=== PATIENT | female | born 1960 | race Asian ===

== ENCOUNTER 2021-06-10 21:30 | Emergency (ER) | payer OTHER ==
[~2021-06-10] VITALS: Ht 167.6 cm; Wt 72.6 kg
[2021-06-10 21:30] VITALS: BP 143/81; TEMP 98.5
[2021-06-10 22:15] LABS: PLATELET COUNT 260 K/uL (152-353)
[2021-06-10 22:28] LABS: POTASSIUM 3.8 mmol/L (3.6-5.2); SODIUM 140 mmol/L (136-145)
[2021-06-11] MEDS ORDERED: GABA300C2 PO (00:28)
[2021-06-11] MEDS ORDERED: VENLAFAXINE75 M2 PO (00:29)
[2021-06-11] MEDS ORDERED: ALPRAZOLAM PO (00:31)
[2021-06-11] MEDS ORDERED: SERT50TA PO (00:32)
[2021-06-11] MEDS ORDERED: ALEVE220 MG PO (00:33)
[2021-06-11] MEDS ORDERED: DIVALPROEX SOD DR PO (00:34)
[2021-06-11] MEDS ORDERED: CARV12.5 PO (00:35)
[2021-06-11] MEDS ORDERED: METHOCARBAMOL PO (00:39)
[2021-06-11] MEDS ORDERED: HYDROCODONE-ACE PO (00:42)
[2021-06-11] MEDS ORDERED: MORPHINE SULF PO (00:45)
[2021-06-11] MEDS ORDERED: METFORMIN HCL500 M1 PO (00:47)
[2021-06-11] MEDS ORDERED: AMLODIPINE BESYLATE PO (00:49)
== END 2021-06-10 23:37 | disposition still patient (30) ==
LOC: ED 21:41
PROVIDERS: Emergency Medicine
DX: R45.1 Restlessness and agitation (principal); N39.0 Urinary tract infection, site not specified; Z89.512 Acquired absence of left leg below knee; Z11.52 Encounter for screening for COVID-19; Z04.6 Encounter for general psychiatric examination, requested by authority
CPT/HCPCS: 36415; 80053; 81000; 85027; 87077; 87086; 87088; 87186; 87635; 93005; 96372; 99283; J0696; U0003